=== PATIENT | male | born 1980 | race Caucasian/White ===

== ENCOUNTER 2016-06-18 01:22 | Emergency (ER) | payer OTHER ==
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
--- NOTE | 2016-06-18 06:34 | ED MED RECONCILIATION SUMMARY ---
Patient: BRENDA CAMPBELL Medication Reconciliation Report [facility] VisitID: [id number] [address] [place] [address] 35y, M Registration Date/Time: 06/18/2016 Weight: 79.3 kg Height/Length: 69 in. BMI: 25.8 ALLERGIES: No Known Drug Allergy The patient's Home Medications are listed below: NONE. The source(s) of the original Home Medication information: patient The following Medications were given to the patient in the Emergency Department: None. The following Medications were prescribed to the patient: None.
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
--- NOTE | 2016-06-18 06:34 | ED MAR SUMMARY ---
..... Medication Administration Record [facility] [address] [place], [place] [id number] Patient: BRENDA CAMPBELL Visit ID: [id number] 35y, M Weight: 79.3 kg Height/Length: 69 in BMI: 25.8 ALLERGIES: No Known Drug Allergy
--- NOTE | 2016-06-18 06:34 | ED MAR SUMMARY ---
..... Medication Administration Record [address] [place], [place] [id number] Patient: BRENDA CAMPBELL Visit ID: [id number] 35y, M Weight: 79.3 kg Height/Length: 69 in BMI: 25.8 ALLERGIES: No Known Drug Allergy
--- NOTE | 2016-06-18 06:34 | ED MED RECONCILIATION SUMMARY ---
Patient: BRENDA CAMPBELL Medication Reconciliation Report [facility] VisitID: [id number] [address] [place] [place] [address] 35y, M Registration Date/Time: 06/18/2016 Weight: 79.3 kg Height/Length: 69 in. BMI: 25.8 ALLERGIES: No Known Drug Allergy The patient's Home Medications are listed below: NONE. The source(s) of the original Home Medication information: patient The following Medications were given to the patient in the Emergency Department: None. The following Medications were prescribed to the patient: None.
== END 2016-06-18 01:45 ==
LOC: ED SRH 01:22
DX: M54.2 Cervicalgia (principal); S50.811A Abrasion of right forearm, initial encounter; S50.812A Abrasion of left forearm, initial encounter; V89.2XXA Person injured in unspecified motor-vehicle accident, traffic, initial encounter; Y93.89 Activity, other specified; Y92.410 Unspecified street and highway as the place of occurrence of the external cause; Y99.9 Unspecified external cause status